=== PATIENT | male | born 1950 | race African-American/Black ===

== ENCOUNTER 2016-12-22 05:57 | Day surgery (SDC) | payer BC ==
[2016-12-21 12:08] VITALS: BMI 34.0
[2016-12-22] MEDS ORDERED: TETRACAINE 0.5% OPHTH SOLN 2 ML BOTTLE ONE (07:21)
[2016-12-22] MEDS ORDERED: BACITRACIN 3.5 GM OPTHALMIC OINT TUBE ONE (07:21)
[2016-12-22] MEDS ORDERED: POVIDONE-IODINE 5% OPHTHALMIC PREP 30 ML SOLUTION ONE (07:21)
[2016-12-22] MEDS ORDERED: MIDAZOLAM HCL 2 MG/2 ML SINGLE DOSE VIAL ONE (07:31)
[2016-12-22] MEDS ORDERED: PROPOFOL 20 ML ONE ×3 (07:31→08:57)
[2016-12-22] MEDS ORDERED: SUCCINYLCHOLINE CHLORIDE 200 MG/10 ML VIAL ONE (07:39)
[2016-12-22] MEDS ORDERED: ePHEDrine SULFATE 50 MG/1 ML AMPULE ONE (07:40)
[2016-12-22] MEDS ORDERED: ceFAZolin SODIUM 1 GM VIAL ONE ×2 (07:47→09:07)
[2016-12-22] MEDS ORDERED: ONDANSETRON 4 MG/2 ML VIAL ONE ×2 (08:21→09:17)
[2016-12-22] MEDS ORDERED: ACETAMINOPHEN 500 MG TABLET (FP) PO PRN (08:29)
[2016-12-22 08:58] VITALS: TEMP 97.6
[2016-12-22] MEDS ORDERED: LIDOCAINE HCL 2% 100 MG/5 ML DISP.SYRIN ONE (08:58)
[2016-12-22] MEDS ORDERED: DEXAMETHASONE SOD PHOSPHATE 4 MG/1 ML VIAL ONE (09:17)
[2016-12-22] MEDS ORDERED: PHENYLEPHRINE HCL 10 MG/1 ML SINGLE DOSE VIAL ONE (09:26)
[2016-12-22] MEDS ORDERED: ACETAMINOPHEN 500 MG TABLET (FP) ONE (09:33)
[2016-12-22] MEDS ORDERED: METOPROLOL TARTRATE 5 MG/5 ML VIAL ONE (09:34)
[2016-12-22 10:12] VITALS: BP 121/69; PULSE 49
[2016-12-22] MEDS ORDERED: LACTATED RINGERS SOLUTION 1,000 ML IV SCH (11:45)
[2016-12-22] MEDS ORDERED: ONDANSETRON 4 MG/2 ML VIAL IVPUSH PRN (11:49)
--- NOTE | 2016-12-23 12:57 | OP ---
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 POSTOPERATIVE DIAGNOSIS: Levator ptosis of the left upper lid. PROCEDURE: Levator advancement and reattachment, left upper lid. SURGEON: Juliana Candelaria MD ANESTHESIA: Local with sedation. COMPLICATONS: None. ESTIMATED BLOOD LOSS: Less than 1 mL. OPERATION REPORT: The patient was brought to the operating room and placed on the operating room table. Vital signs monitored by Anesthesia. Tetracaine was placed in both eyes. Lid crease was marked in the patients nasal crease approximately 9 mm above the lash line. Patient was given intravenous sedation after time-out, and then, 0.5 to 0.75 mL of 1% Xylocaine with 1:100,000 epinephrine was injected subcutaneously in the left lid crease and with gentle massage. The patient was prepped and draped in the usual sterile fashion exposing both eyes. Incision was carried through skin and subcutaneous tissue. This was carried through the orbicularis layer with [place] needle. The suborbicularis incision was carried superiorly exposing the septum, which was widely opened, exposing the preaponeurotic fat, which was retracted to expose a completely dehisced levator aponeurosis. The suborbicularis plane was dissected inferiorly exposing the anterior superior third of the tarsus. The levator aponeurosis was now reattached with a mattress 6-0 Vicryl and two interrupted 6-0 Vicryl sutures. The mattress was placed centrally nasal and temporal. This demonstrated no penetration of the suture. Each of these Vicryl sutures were tied. Patient was placed in the upright position. Lid was felt to be too high, and therefore the central wound was recessed to the very end of the advanced levator, and these were reassessed, and the upper lid contoured and height of the left upper lid was found to be excellent. All sutures were tied. Irrigation was used throughout the case, and at the end of the case, a small amount of anesthetic was reinjected into the skin, and then, the wound was closed with a running 6-0 plain suture, Bacitracin was placed on the sutures of the upper lid, and the patient was taken to the recovery room in stable condition. There were no complications. JULIANA CANDELARIA M.D. APOLLO/[id number]
== END 2016-12-22 10:21 | disposition home or self-care (01) ==
LOC: FASU 05:57
PROVIDERS: ATTEND Ophthalmology
PROC: 08SP0ZZ Reposition Left Upper Eyelid, Open Approach (ICD-10-PCS; principal; 2016-12-22 07:55)
DX: H02.422 Myogenic ptosis of left eyelid (principal)
CPT/HCPCS: 94760

== ENCOUNTER 2017-11-26 11:23 | Emergency (ER) | payer OTHER ==
[2017-11-26 11:34] VITALS: BMI 33.7
--- NOTE | 2017-11-26 12:31 | PDOC ---
History of Present Illness - General History Source: Patient Exam Limitations: No Limitations - History of Present Illness Initial Comments: 11/26/17 14:07 The patient is a 67 year old female with history significant for hypertension, hyperlipidemia, cardiomyopathy, known bradycardia who presents to the ED complaining of lightheadedness that began this morning. He states he felt lightheaded upon getting up. He sat down on his bed and lied down. No fall or head trauma. No true loss of consciousness. He also reports associated chest tightness and nausea. No fever, chills, or recent illness. No cough or recent illness. No nausea, vomiting, or diaphoresis. No urinary complaints. <Rosario Thompson - Last Filed: 11/26/17 16:13> <Kaur Garcia - Last Filed: 11/26/17 17:07> - General Chief Complaint: Lightheaded Stated Complaint: DIZZINESS Time Seen by Provider: 11/26/17 12:12 Past History <Rosario Thompson - Last Filed: 11/26/17 16:13> - Past Medical History Anemia: No Asthma: No Cancer: No Cardiac Disorders: Yes (MYOPATHY-DX 2011) CVA: No COPD: No CHF: No DVT: No Dementia: No Diabetes: No GI Disorders: Yes (GERD) Disorders: Yes (BPH) HTN: Yes Hypercholesterolemia: Yes Liver Disease: No Seizures: No Thyroid Disease: No - Surgical History Abdominal Surgery: No Appendectomy: No Cardiac Surgery: No Cholecystectomy: No Lung Surgery: No Neurologic Surgery: No Orthopedic Surgery: Yes (LUMBAR LAMINECTOMY/DISCECTOMY-2014) - Immunization History Immunization Up to Date: Yes - Suicide/Smoking/Psychosocial Hx Smoking Status: No Smoking History: Never smoked Have you smoked in the past 12 months: No Number of Cigarettes Smoked Daily: 0 Information on smoking cessation initiated: No Hx Alcohol Use: No Drug/Substance Use Hx: No Substance Use Type: None Hx Substance Use Treatment: No <Kaur Garcia - Last Filed: 11/26/17 17:07> - Past Medical History Allergies/Adverse Reactions: Allergies Allergy/AdvReac Type Severity Reaction Status Date / Time No Known Drug Allergies Allergy Verified 11/26/17 11:29 PEPPER Allergy Severe THROAT Uncoded 11/26/17 11:29 CLOSES Home Medications: Ambulatory Orders Amlodipine Besylate [Norvasc -] 10 mg PO DAILY 06/11/12 Finasteride [Proscar -] 5 mg PO HS 06/11/12 Irbesartan/Hydrochlorothiazide [Avalide 300-12.5 mg Tablet] 1 each PO DAILY 10/09 Sennosides [Senna -] 2 tab PO UTDICT 06/21/13 Triamcinolone Acet 55Mcg/Inhal [Nasacort Aq] 16.5 gm NS PRN 06/21/13 Ezetimibe [Zetia] 10 mg PO HS 11/13/13 Buprenorphine [Butrans] 10 mcg TD WEEKLY 02/22/15 Gabapentin 300 mg PO HS 02/22/15 Allopurinol [Zyloprim -] 100 mg PO DAILY 12/21/16 Aspirin Coated [Ecotrin -] 81 mg PO DAILY 12/21/16 Carvedilol 25 mg PO BID 12/21/16 Cholecalciferol (Vitamin D3) [Vitamin D3 -] 1,000 unit PO DAILY 12/21/16 Doxazosin Mesylate 8 mg PO BID 12/21/16 Review of Systems - Review of Systems Able to Perform ROS?: Yes Comments:: 11/26/17 14:14 GENERAL/CONSTITUTIONAL: No fever or chills. No weakness. HEAD, EYES, EARS, NOSE AND THROAT: No change in vision. No ear pain or discharge. No sore throat. CARDIOVASCULAR: +Lightheadedness, chest tightness. No shortness of breath or palpitations. RESPIRATORY: No cough, wheezing, or hemoptysis. GASTROINTESTINAL: +Nausea. No vomiting, diarrhea or constipation. GENITOURINARY: No dysuria, frequency, or change in urination. MUSCULOSKELETAL: No joint or muscle swelling or pain. No neck or back pain. SKIN: No rash NEUROLOGIC: No headache, vertigo, loss of consciousness, or change in strength/ sensation. ENDOCRINE: No increased thirst. No abnormal weight change. HEMATOLOGIC/LYMPHATIC: No anemia, easy bleeding, or history of blood clots. ALLERGIC/IMMUNOLOGIC: No hives or skin allergy. <Rosario Thompson - Last Filed: 11/26/17 16:13> *Physical Exam - Vital Signs Last Vital Signs Temp Pulse Resp BP Pulse Ox 97.6 F 53 L 17 140/78 98 11/26/17 11:30 11/26/17 12:53 11/26/17 12:53 11/26/17 12:53 11/26/17 12:53 <Rosario Thompson - Last Filed: 11/26/17 16:13> - Vital Signs Last Vital Signs Temp Pulse Resp BP Pulse Ox 97.6 F 69 16 148/93 98 11/26/17 11:30 11/26/17 11:30 11/26/17 11:30 11/26/17 11:30 11/26/17 11:30 - Physical Exam Comments: GENERAL: Awake, alert, and fully oriented, in no acute distress HEAD: No signs of trauma EYES: PERRLA, EOMI, sclera anicteric, conjunctiva clear ENT: Auricles normal inspection, hearing grossly normal, nares patent, oropharynx clear without exudates. Moist mucosa NECK: Normal ROM, supple, no lymphadenopathy, JVD, or masses LUNGS: Breath sounds equal, clear to auscultation bilaterally. No wheezes, and no crackles HEART: Bradycardic, normal S1 and S2, no murmurs, rubs or gallops ABDOMEN: Soft, nontender, normoactive bowel sounds. No guarding, no rebound. No masses EXTREMITIES: Normal range of motion, no edema. No clubbing or cyanosis. No cords, erythema, or tenderness NEUROLOGICAL: Cranial nerves II through XII grossly intact. Normal speech, normal gait SKIN: Warm, Dry, normal turgor, no rashes or lesions noted. <Kaur Garcia - Last Filed: 11/26/17 17:07> Heart Score/ECG Review - History History: Moderately suspicious - Electrocardiogram EKG: Non specific repolarization disturbance - Age Age: >/= 65 - Risk Factors Risk Factors Heart Score: Yes Hx Hypertension, Yes Positive family hx of cardiac disease, Yes Hx Obesity Based on the list above the patient has:: >/=3 risk factors or Hx atherosclerotic disease - Troponin Troponin: </= normal limit - Score Heart Score - Total: 6 - ECG Impressions Comment:: EKG read 13:49- Sinus terrie 50 bpm, +LBBB (similar to prior EKG) <Kaur Garcia - Last Filed: 11/26/17 17:07> ED Treatment Course - LABORATORY CBC & Chemistry Diagram: 11/26/17 12:30 11/26/17 12:30 - ADDITIONAL ORDERS Additional order review: Laboratory Results 11/26/17 12:30 Sodium 141 Potassium 4.5 Chloride 104 Carbon Dioxide 27 Anion Gap 10 BUN 24 H D Creatinine 2.1 H D Creat Clearance w eGFR 31.76 Random Glucose 102 Calcium 9.5 Total Bilirubin 0.4 D AST 45 H D ALT 59 D Alkaline Phosphatase 85 D Creatine Kinase 344 H Troponin I 0.07 H D Total Protein 7.5 Albumin 3.6 11/26/17 12:30 RBC 4.76 MCV 86.4 MCHC 34.4 RDW 14.0 MPV 8.2 Neutrophils % 56.7 Lymphocytes % 28.1 Monocytes % 12.2 H Eosinophils % 1.9 Basophils % 1.1 D <Rosario Thompson - Last Filed: 11/26/17 16:13> - LABORATORY CBC & Chemistry Diagram: 11/26/17 12:30 11/26/17 12:30 <Kaur Garcia - Last Filed: 11/26/17 17:07> Medical Decision Making - Medical Decision Making 11/26/17 16:13 Chest x-ray, read and interpreted by Dr. Zambrano. Impression: Cardiomegaly. Mild vascular congestive changes. No evidence of the pneumothorax. Left lower lung obscured by the cardiac silhouette, soft tissues of the chest. <Rosario Thompson - Last Filed: 11/26/17 16:13> - Medical Decision Making Case d/w Dr. Barker via phone approximately 2pm. Pt with prior negative stress test and MUGA. Does not suspect cardiac origin for symptoms. I will send repeat CE at 6hrs. If neg, DC home. will place on ED obs. <Kaur Garcia - Last Filed: 11/26/17 17:07> *DC/Admit/Observation/Transfer - Attestations Scribe Attestion: 11/26/17 14:46 Documentation prepared by Rosario Thompson, acting as medical typist for Kaur Garcia MD. <Rosario Thompson - Last Filed: 11/26/17 16:13> - Discharge Dispostion Admit: Yes <Kaur Garcia - Last Filed: 11/26/17 17:07> Diagnosis at time of Disposition: Near syncope - Discharge Dispostion Condition at time of disposition: Stable
[2017-11-26 13:08] LABS: BASO % 1.1 % (0-2.0); EOS % 1.9 % (0-4.5); HEMATOCRIT 41.1 % (35.4-49); HEMOGLOBIN 14.1 GM/dL (11.7-16.9); LYMPH % 28.1 % (8-40); MCH 29.7 pg (25.7-33.7); MCHC 34.4 g/dl (32.0-35.9); MEAN CELL VOLUME 86.4 fl (80-96); MEAN PLT VOLUME 8.2 fl (7.5-11.1); MONO % 12.2 % (3.8-10.2); NEUT % 56.7 % (42.8-82.8); PLATELET COUNT 177 K/MM3 (134-434); RBC 4.76 M/mm3 (4.00-5.60); WHITE BLOOD COUNT 6.5 K/mm3 (4.0-10.0)
[2017-11-26 13:49] LABS: ALBUMIN 3.6 g/dl (3.4-5.0); ANION GAP 10 (8-16); BILIRUBIN,TOTAL 0.4 mg/dL (0.2-1.0); BLOOD UREA NITROGEN 24 mg/dL (7-18); CALCIUM 9.5 mg/dL (8.5-10.1); CHLORIDE 104 mmol/L (98-107); CO2 27 mmol/L (21-32); CREATININE 2.1 mg/dL (0.7-1.3); GLUCOSE,RANDOM 102 mg/dL (74-106); SGPT/ALT 59 U/L (12-78); SODIUM 141 mmol/L (136-145); TOT PROT 7.5 g/dl (6.4-8.2)
[2017-11-26 13:51] LABS: ALK PHOS 85 U/L (45-117)
[2017-11-26 13:55] LABS: POTASSIUM 4.5 mmol/L (3.5-5.1); SGOT/AST 45 U/L (15-37)
[2017-11-26 19:21] VITALS: TEMP 98.5
--- NOTE | 2017-11-26 19:50 | PDOC ---
*Physical Exam - Vital Signs Last Vital Signs Temp Pulse Resp BP Pulse Ox 98.5 F 48 L 18 128/66 98 11/26/17 19:21 11/26/17 19:21 11/26/17 19:21 11/26/17 19:21 11/26/17 19:21 - Physical Exam Comments: 11/26/17 19:50 "GENERAL: Awake, alert, and fully oriented, in no acute distress HEAD: No signs of trauma EYES: PERRLA, EOMI, sclera anicteric, conjunctiva clear ENT: Auricles normal inspection, hearing grossly normal, nares patent, oropharynx clear without exudates. Moist mucosa NECK: Nontender, no stepoffs, Normal ROM, supple, no lymphadenopathy, JVD, or masses LUNGS: Breath sounds equal, clear to auscultation bilaterally. No wheezes, and no crackles HEART: Regular rate and rhythm, normal S1 and S2, no murmurs, rubs or gallops ABDOMEN: Soft, nontender, normoactive bowel sounds. No guarding, no rebound. No masses EXTREMITIES: Normal range of motion, no edema. No clubbing or cyanosis. No cords, erythema, or tenderness NEUROLOGICAL: Cranial nerves II through XII intact. 5/5 strength and sensation in all extremities, Normal speech, normal gait, normal cerebellar function SKIN: Warm, Dry, normal turgor, no rashes or lesions noted. " ED Treatment Course - LABORATORY CBC & Chemistry Diagram: 11/26/17 12:30 11/26/17 12:30 - ADDITIONAL ORDERS Additional order review: Laboratory Results 11/26/17 12:30 Sodium 141 Potassium 4.5 Chloride 104 Carbon Dioxide 27 Anion Gap 10 BUN 24 H D Creatinine 2.1 H D Creat Clearance w eGFR 31.76 Random Glucose 102 Calcium 9.5 Total Bilirubin 0.4 D AST 45 H D ALT 59 D Alkaline Phosphatase 85 D Creatine Kinase 344 H Creatine Kinase Index 1.2 CK-MB (CK-2) 4.191 H Troponin I 0.07 H D Total Protein 7.5 Albumin 3.6 11/26/17 12:30 RBC 4.76 MCV 86.4 MCHC 34.4 RDW 14.0 MPV 8.2 Neutrophils % 56.7 Lymphocytes % 28.1 Monocytes % 12.2 H Eosinophils % 1.9 Basophils % 1.1 D Medical Decision Making - Medical Decision Making 11/26/17 19:50 Sign out taken from Dr. Garcia at 5PM. 67M with hypertension, hyperlipidemia, cardiomyopathy, known bradycardia who presents to the ED complaining of lightheadedness. - Dr. Garcia spoke with Dr. Joshi, pt's facetor, who does not believe pt's symptoms are cardiac related - Initial trop 0.07, repeat downtrending Pt reassessed - states that he feels much better. Denies recurrence of lightheadedness. Denies CP/SOB. Pt is well appearing with stable vitals Clinically stable for DC. I discussed the physical exam findings, ancillary test results and final diagnoses with the patient. I answered all of the patient's questions. The patient was satisfied with the care received and felt comfortable with the discharge plan and treatment plan. The patient agrees to follow up with the primary care physician within 24-72 hours. *DC/Admit/Observation/Transfer Diagnosis at time of Disposition: Near syncope - Discharge Dispostion Disposition: HOME Condition at time of disposition: Stable - Referrals Referrals: Jase Damico MD [Primary Care Provider] - - Patient Instructions Printed Discharge Instructions: Dizziness, Nonvertigo Additional Instructions: Please follow up with your facetor tomorrow. If you experience any recurrent lightheadedness, chest pain, shortness of breath , or any other concerning symptoms, return to the ER immediately. - Post Discharge Activity - Attestations Physician Attestion: 11/26/17 19:52 I, Dr. Rony Fagan MD, attest that this document has been prepared under my direction and personally reviewed by me in its entirety. I further attest, that it accurately reflects all work, treatment, procedures and medical decision -making performed by me.
[2017-11-26 20:20] VITALS: BP 133/62; PULSE 51
--- NOTE | 2017-11-28 20:33 | EKG ---
Test Reason : Blood Pressure : / mmHG Vent. Rate : 050 BPM Atrial Rate : 050 BPM P-R Int : 204 ms QRS Dur : 154 ms QT Int : 538 ms P-R-T Axes : 051 022 044 degrees QTc Int : 490 ms SINUS BRADYCARDIA LEFT BUNDLE BRANCH BLOCK ABNORMAL ECG WHEN COMPARED WITH ECG OF 04-MAR-2015 10:53, T WAVE VARIATION Confirmed by GLO AWAN MD ([id number]) on 11/28/2017 8:33:00 PM Referred By: Confirmed By:GLO AWAN MD
== END 2017-11-26 20:22 | disposition home or self-care (01) ==
LOC: JER 11:23 → UNDOADMOB 14:16 → JERBED 14:16 → JER 20:22
DX: R55 Syncope and collapse (principal); I10 Essential (primary) hypertension; E78.00 Pure hypercholesterolemia, unspecified; N40.0 Benign prostatic hyperplasia without lower urinary tract symptoms; G72.9 Myopathy, unspecified; K21.9 Gastro-esophageal reflux disease without esophagitis
CPT/HCPCS: 36415; 71045-TC-FY; 80053; 82550; 82553; 84484; 85025; 93005; 93010; 99284-25

== ENCOUNTER 2019-05-14 15:41 | Emergency (ER) | payer OTHER ==
[2019-05-14 15:49] VITALS: BP 133/80; PULSE 61; TEMP 97.7; BMI 32.8
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
== END 2019-05-14 16:56 | disposition home or self-care (01) ==
LOC: JERFT 15:41
DX: S13.4XXA Sprain of ligaments of cervical spine, initial encounter (principal); V43.62XA Car passenger injured in collision with other type car in traffic accident, initial encounter; Y92.488 Other paved roadways as the place of occurrence of the external cause; Y93.89 Activity, other specified; Y99.8 Other external cause status; I10 Essential (primary) hypertension; E78.00 Pure hypercholesterolemia, unspecified; N40.0 Benign prostatic hyperplasia without lower urinary tract symptoms; K21.9 Gastro-esophageal reflux disease without esophagitis
CPT/HCPCS: 99282-25

== ENCOUNTER 2021-07-23 08:42 | Inpatient (IN) | payer OTHER ==
[2021-07-23] MEDS ORDERED: NITROGLYCERIN 2% OINTMENT - 1GM PACKET TD ONE ×2 (09:15→09:22)
[2021-07-23 09:31] LABS: BASO % 2.2 % (0-2.0); EOS % 2.3 % (0-4.5); HEMATOCRIT 37.9 % (35.4-49); HEMOGLOBIN 13.2 GM/dL (11.7-16.9); LYMPH % 15.6 % (8-40); MCH 29.8 pg (25.7-33.7); MCHC 34.8 g/dl (32.0-35.9); MEAN CELL VOLUME 85.6 fl (80-96); MEAN PLT VOLUME 8.2 fl (7.5-11.1); MONO % 12.2 % (3.8-10.2); NEUT % 67.7 % (42.8-82.8); PLATELET COUNT 184 10^3/uL (134-434); RBC 4.43 M/mm3 (4.00-5.60); RDW 14.4 % (11.9-15.9); WHITE BLOOD COUNT 4.7 K/mm3 (4.0-10.0)
[2021-07-23 09:38] LABS: INR 1.32 (0.83-1.09); PROTHROMBIN TIME (PATIENT) 15.5 SEC (9.7-13.0)
[2021-07-23 09:52] LABS: CALCIUM 9.6 mg/dL (8.5-10.1)
[2021-07-23 09:53] LABS: ALBUMIN 3.4 g/dl (3.4-5.0); BLOOD UREA NITROGEN 24.5 mg/dL (7-18); MAGNESIUM 2.2 mg/dL (1.8-2.4)
[2021-07-23 09:58] LABS: BILIRUBIN,TOTAL 0.6 mg/dL (0.2-1); TOT PROT 6.8 g/dl (6.4-8.2)
[2021-07-23 10:02] LABS: N-TERMINAL BNP 6593.1 pg/ml (5-125)
[2021-07-23] MEDS ORDERED: METOPROLOL TARTRATE 5 MG/5 ML VIAL ONE ×2 (10:06→11:13)
[2021-07-23] MEDS ORDERED: METOPROLOL TARTRATE 5 MG/5 ML VIAL IVPUSH ONE ×2 (11:12→11:31)
[2021-07-23] MEDS ORDERED: ASPIRIN 325 MG ENTERIC COATED TABLET (FP) PO ONE (11:19)
[2021-07-23] MEDS ORDERED: ASPIRIN 81 MG CHEWABLE TABLETS ONE (11:31)
[2021-07-23] MEDS ORDERED: AMIODARONE HCL INJECTION 150 MG in DEXTROSE 5%-WATER - 100 ML IVPB ONE (12:20)
[2021-07-23] MEDS ORDERED: AMIODARONE HCL INJECTION 450 MG in DEXTROSE 5%-WATER - 241 ML IVPB ONE (12:23)
[2021-07-23] MEDS ORDERED: AMIODARONE HCL 150 MG/3 ML VIAL ONE ×2 (12:35→12:37)
[2021-07-23] MEDS ORDERED: AMIODARONE IN DEXTROSE,ISO-OSM 360 MG/200 ML BAG IVPB ONE ×2 (13:00→14:13)
[2021-07-23] MEDS ORDERED: FUROSEMIDE 40 MG TABLET (FP) PO ONE (17:03)
[2021-07-23 17:34] VITALS: BMI 33.2
[2021-07-23] MEDS ORDERED: AMIODARONE IN DEXTROSE,ISO-OSM 360 MG/200 ML BAG IVPB SCH (19:00)
[2021-07-23] MEDS: CARVEDILOL 25 MG TABLET (FP) PO SCH (21:04)
[2021-07-23] MEDS: APIXABAN 5 MG TABLET PO SCH (21:04)
[2021-07-23] MEDS: EZETIMIBE 10 MG TABLET (FP) PO SCH (21:04)
[2021-07-23] MEDS: FINASTERIDE 5 MG TABLET (FP) PO SCH (21:05)
[2021-07-23] MEDS ORDERED: ROSUVASTATIN CA 5 MG TABLET (FP) PO SCH (22:00)
[2021-07-23] MEDS ORDERED: SACUBITRIL/VALSARTAN 49 MG-51 MG TABLET PO SCH (22:00)
[2021-07-23] MEDS: GABAPENTIN 300 MG CAPSULE PO SCH (22:35)
[2021-07-24] MEDS ORDERED: ACETAMINOPHEN 325 MG TABLET (FP) PO ONE (01:32)
[2021-07-24 07:44] LABS: BASO % 0.9 % (0-2.0); EOS % 1.8 % (0-4.5); HEMATOCRIT 35.8 % (35.4-49); HEMOGLOBIN 12.2 GM/dL (11.7-16.9); LYMPH % 16.9 % (8-40); MCH 29.7 pg (25.7-33.7); MCHC 34.2 g/dl (32.0-35.9); MEAN CELL VOLUME 86.9 fl (80-96); MEAN PLT VOLUME 7.9 fl (7.5-11.1); MONO % 11.5 % (3.8-10.2); NEUT % 68.9 % (42.8-82.8); PLATELET COUNT 160 10^3/uL (134-434); RBC 4.12 M/mm3 (4.00-5.60); RDW 14.1 % (11.9-15.9); WHITE BLOOD COUNT 5.1 K/mm3 (4.0-10.0)
[2021-07-24 08:20] LABS: ALBUMIN 3.1 g/dl (3.4-5.0); BLOOD UREA NITROGEN 25.2 mg/dL (7-18); CALCIUM 9.2 mg/dL (8.5-10.1); MAGNESIUM 2.1 mg/dL (1.8-2.4)
[2021-07-24 08:23] LABS: PHOSPHOROUS 3.7 mg/dL (2.5-4.9)
[2021-07-24 08:25] LABS: BILIRUBIN,TOTAL 1.2 mg/dL (0.2-1); TOT PROT 6.5 g/dl (6.4-8.2)
[2021-07-24] MEDS ORDERED: FUROSEMIDE 40 MG/4 ML INJECTABLE VIAL IVPUSH ONE (09:30)
[2021-07-24] MEDS ORDERED: PT OWN MED DRAWER 7, Y5N ONE ×3 (09:36→14:42)
[2021-07-24] MEDS: TAMSULOSIN HCL 0.4 MG CAP PO SCH (09:46)
[2021-07-24] MEDS ORDERED: amLODIPine BESYLATE 10 MG TABLET (FP) PO SCH (10:00)
[2021-07-24] MEDS ORDERED: HYDROCHLOROTHIAZIDE 12.5 MG CAPSULE (FP) PO SCH (10:00)
[2021-07-24] MEDS ORDERED: ASPIRIN COATED 81 MG TABLET.EC PO SCH (10:00)
[2021-07-24] MEDS: ALLOPURINOL 100 MG TABLET (FP) PO SCH (10:13)
[2021-07-24] MEDS: APIXABAN 5 MG TABLET PO SCH ×2 (10:14→21:12)
[2021-07-24] MEDS: AMIODARONE HCL 200 MG TABLET PO SCH ×2 (10:14→21:12)
[2021-07-24] MEDS: CARVEDILOL 25 MG TABLET (FP) PO SCH ×2 (10:15→21:12)
[2021-07-24] MEDS: amLODIPine BESYLATE 5 MG TABLET (FP) PO SCH (10:17)
[2021-07-24] MEDS: SACUBITRIL/VALSARTAN 97 MG-103 MG TABLET PO SCH ×2 (11:24→21:12)
[2021-07-24] MEDS ORDERED: POTASSIUM CHLORIDE TABS 20 MEQ TABLET.ER (FP) PO ONE (13:02)
[2021-07-24] MEDS: EZETIMIBE 10 MG TABLET (FP) PO SCH (21:12)
[2021-07-24] MEDS: FINASTERIDE 5 MG TABLET (FP) PO SCH (21:12)
[2021-07-24] MEDS: GABAPENTIN 300 MG CAPSULE PO SCH (21:12)
[2021-07-25] MEDS: AMIODARONE HCL 200 MG TABLET PO SCH ×2 (05:21→10:00)
[2021-07-25] MEDS: FINASTERIDE 5 MG TABLET (FP) PO SCH (05:21)
[2021-07-25 07:27] LABS: BASO % 1.1 % (0-2.0); EOS % 3.2 % (0-4.5); HEMATOCRIT 37.4 % (35.4-49); LYMPH % 17.7 % (8-40); MCH 29.5 pg (25.7-33.7); MCHC 34.6 g/dl (32.0-35.9); MEAN CELL VOLUME 85.2 fl (80-96); MEAN PLT VOLUME 8.3 fl (7.5-11.1); MONO % 10.9 % (3.8-10.2); NEUT % 67.1 % (42.8-82.8); PLATELET COUNT 179 10^3/uL (134-434); RBC 4.39 M/mm3 (4.00-5.60); RDW 14.3 % (11.9-15.9)
[2021-07-25 07:58] LABS: ALBUMIN 3.3 g/dl (3.4-5.0); BLOOD UREA NITROGEN 25.4 mg/dL (7-18); CALCIUM 9.3 mg/dL (8.5-10.1)
[2021-07-25 08:01] LABS: PHOSPHOROUS 3.6 mg/dL (2.5-4.9)
[2021-07-25 08:03] LABS: BILIRUBIN,TOTAL 0.5 mg/dL (0.2-1); TOT PROT 6.7 g/dl (6.4-8.2)
[2021-07-25] MEDS: TAMSULOSIN HCL 0.4 MG CAP PO SCH (10:00)
[2021-07-25] MEDS: SACUBITRIL/VALSARTAN 97 MG-103 MG TABLET PO SCH (10:01)
[2021-07-25] MEDS: APIXABAN 5 MG TABLET PO SCH (10:01)
[2021-07-25] MEDS: CARVEDILOL 25 MG TABLET (FP) PO SCH (10:01)
[2021-07-25] MEDS: amLODIPine BESYLATE 5 MG TABLET (FP) PO SCH (10:02)
[2021-07-25] MEDS: ALLOPURINOL 100 MG TABLET (FP) PO SCH (10:03)
[2021-07-25] MEDS ORDERED: FUROSEMIDE 40 MG/4 ML INJECTABLE VIAL IVPUSH ONE (14:36)
[2021-07-25 17:12] VITALS: BP 138/88; PULSE 65; TEMP 98.2
[2021-07-26] MEDS ORDERED: FUROSEMIDE 40 MG TABLET (FP) PO SCH (10:00)
== END 2021-07-25 18:38 | disposition home or self-care (01) | DRG 308 ==
LOC: JER 08:42 → JERBED 12:30 → J4W 16:36
PROVIDERS: ADMIT Internal Medicine; ATTEND Internal Medicine
DX: I48.0 Paroxysmal atrial fibrillation (principal); I50.23 Acute on chronic systolic (congestive) heart failure; I13.0 Hypertensive heart and chronic kidney disease with heart failure and stage 1 through stage 4 chronic kidney disease, or unspecified chronic kidney disease; I24.8 Other forms of acute ischemic heart disease; I47.2 Ventricular tachycardia; E78.5 Hyperlipidemia, unspecified; I42.9 Cardiomyopathy, unspecified; I42.0 Dilated cardiomyopathy; G47.30 Sleep apnea, unspecified; I10 Essential (primary) hypertension; Z95.0 Presence of cardiac pacemaker; Z85.46 Personal history of malignant neoplasm of prostate; I48.91 Unspecified atrial fibrillation; N18.32 Chronic kidney disease, stage 3b; N28.89 Other specified disorders of kidney and ureter; Z79.01 Long term (current) use of anticoagulants
CPT/HCPCS: 36415; 71045-TC-FY; 80053; 82550; 82553; 83735; 83880; 84100; 84443; 84484; 85025; 85610; 93005; 93010; 97116-GP; 97162-GP; 99285-25; C9803; U0003; U0005

== ENCOUNTER 2021-08-16 15:39 | Observation (INO) | payer OTHER ==
[2021-08-16 16:08] VITALS: BMI 23.7
[2021-08-16 17:40] LABS: BASO % 1.1 % (0-2.0); EOS % 3.7 % (0-4.5); HEMATOCRIT 34.9 % (35.4-49); HEMOGLOBIN 11.6 GM/dL (11.7-16.9); LYMPH % 21.5 % (8-40); MCHC 33.3 g/dl (32.0-35.9); MEAN CELL VOLUME 86.9 fl (80-96); MEAN PLT VOLUME 7.9 fl (7.5-11.1); MONO % 12.2 % (3.8-10.2); NEUT % 61.5 % (42.8-82.8); PLATELET COUNT 169 10^3/uL (134-434); RBC 4.02 M/mm3 (4.00-5.60); RDW 14.3 % (11.9-15.9); WHITE BLOOD COUNT 4.7 K/mm3 (4.0-10.0)
[2021-08-16 17:52] LABS: INR 1.36 (0.83-1.09); PROTHROMBIN TIME (PATIENT) 15.3 SEC (9.7-13.0)
[2021-08-16 17:55] LABS: ACTIVATED PTT 41.9 SECONDS (25.2-36.5)
[2021-08-16 18:07] LABS: ALBUMIN 3.1 g/dl (3.4-5.0); CALCIUM 8.7 mg/dL (8.5-10.1)
[2021-08-16 18:08] LABS: BLOOD UREA NITROGEN 18.5 mg/dL (7-18)
[2021-08-16 18:10] LABS: CREATININE 2.2 mg/dL (0.55-1.3)
[2021-08-16 18:12] LABS: BILIRUBIN,TOTAL 0.3 mg/dL (0.2-1); TOT PROT 6.5 g/dl (6.4-8.2)
[2021-08-16 18:15] LABS: N-TERMINAL BNP 3256.6 pg/ml (5-125)
[2021-08-16] MEDS ORDERED: FUROSEMIDE 40 MG/4 ML INJECTABLE VIAL IVPUSH ONE (18:22)
[2021-08-16] MEDS ORDERED: FUROSEMIDE 40 MG/4 ML INJECTABLE VIAL ONE (18:59)
[2021-08-16] MEDS ORDERED: APIXABAN 5 MG TABLET ONE (21:48)
[2021-08-16] MEDS ORDERED: GABAPENTIN 100 MG CAPSULE ONE (21:48)
[2021-08-16] MEDS: APIXABAN 5 MG TABLET PO SCH (22:03)
[2021-08-16] MEDS: SACUBITRIL/VALSARTAN 97 MG-103 MG TABLET PO SCH (22:03)
[2021-08-16] MEDS: CARVEDILOL 25 MG TABLET (FP) PO SCH (22:03)
[2021-08-16] MEDS: ROSUVASTATIN CA 5 MG TABLET (FP) PO SCH (22:03)
[2021-08-16] MEDS: GABAPENTIN 100 MG CAPSULE PO SCH (22:57)
[2021-08-17] MEDS ORDERED: FUROSEMIDE 40 MG/4 ML INJECTABLE VIAL ONE ×2 (06:04→15:35)
[2021-08-17] MEDS: FUROSEMIDE 40 MG/4 ML INJECTABLE VIAL IVPB SCH ×2 (06:15→15:43)
[2021-08-17 08:24] LABS: INR 1.34 (0.83-1.09); PROTHROMBIN TIME (PATIENT) 15.7 SEC (9.7-13.0)
[2021-08-17 08:26] LABS: ACTIVATED PTT 39.5 SECONDS (25.2-36.5)
[2021-08-17] MEDS ORDERED: APIXABAN 5 MG TABLET ONE ×2 (08:27→21:34)
[2021-08-17] MEDS ORDERED: amLODIPine BESYLATE 5 MG TABLET (FP) ONE (08:27)
[2021-08-17] MEDS ORDERED: GABAPENTIN 100 MG CAPSULE ONE ×2 (08:27→21:35)
[2021-08-17] MEDS ORDERED: TAMSULOSIN HCL 0.4 MG CAP ONE (08:27)
[2021-08-17 08:28] LABS: HEMATOCRIT 35.8 % (35.4-49); HEMOGLOBIN 11.9 GM/dL (11.7-16.9); MCH 29.1 pg (25.7-33.7); MCHC 33.3 g/dl (32.0-35.9); MEAN CELL VOLUME 87.5 fl (80-96); MEAN PLT VOLUME 9.1 fl (7.5-11.1); PLATELET COUNT 178 10^3/uL (134-434); RBC 4.09 M/mm3 (4.00-5.60); RDW 14.2 % (11.9-15.9); WHITE BLOOD COUNT 4.2 K/mm3 (4.0-10.0)
[2021-08-17 08:42] LABS: ALBUMIN 3.3 g/dl (3.4-5.0); BLOOD UREA NITROGEN 18.9 mg/dL (7-18)
[2021-08-17 08:43] LABS: MAGNESIUM 2.1 mg/dL (1.8-2.4)
[2021-08-17 08:44] LABS: CALCIUM 9.2 mg/dL (8.5-10.1)
[2021-08-17 08:45] LABS: CREATININE 2.2 mg/dL (0.55-1.3); PHOSPHOROUS 3.8 mg/dL (2.5-4.9)
[2021-08-17 08:46] LABS: BILIRUBIN,TOTAL 0.4 mg/dL (0.2-1); TOT PROT 6.5 g/dl (6.4-8.2)
[2021-08-17] MEDS: TAMSULOSIN HCL 0.4 MG CAP PO SCH (08:46)
[2021-08-17] MEDS: APIXABAN 5 MG TABLET PO SCH ×2 (09:30→22:20)
[2021-08-17] MEDS: GABAPENTIN 100 MG CAPSULE PO SCH ×2 (09:37→23:37)
[2021-08-17] MEDS: EZETIMIBE 10 MG TABLET (FP) PO SCH (09:38)
[2021-08-17] MEDS: amLODIPine BESYLATE 5 MG TABLET (FP) PO SCH (09:38)
[2021-08-17] MEDS: FINASTERIDE 5 MG TABLET (FP) PO SCH (09:38)
[2021-08-17] MEDS: ALLOPURINOL 100 MG TABLET (FP) PO SCH (09:38)
[2021-08-17] MEDS ORDERED: AMIODARONE HCL 200 MG TABLET PO SCH (10:00)
[2021-08-17] MEDS: SACUBITRIL/VALSARTAN 97 MG-103 MG TABLET PO SCH ×2 (10:37→22:21)
[2021-08-17] MEDS: CARVEDILOL 25 MG TABLET (FP) PO SCH ×2 (11:00→22:20)
[2021-08-17] MEDS ORDERED: ACETAMINOPHEN 325 MG TABLET (FP) PO ONE (15:45)
[2021-08-17] MEDS ORDERED: ACETAMINOPHEN 325 MG TABLET (FP) ONE (19:13)
[2021-08-17] MEDS ORDERED: CARVEDILOL 12.5 MG TABLET (FP) ONE (21:34)
[2021-08-17] MEDS: ROSUVASTATIN CA 5 MG TABLET (FP) PO SCH (22:20)
[2021-08-18] MEDS ORDERED: FUROSEMIDE 40 MG/4 ML INJECTABLE VIAL ONE (05:39)
[2021-08-18] MEDS: FUROSEMIDE 40 MG/4 ML INJECTABLE VIAL IVPB SCH (06:07)
[2021-08-18 08:20] LABS: BASO % 0.4 % (0-2.0); HEMATOCRIT 37.1 % (35.4-49); HEMOGLOBIN 12.6 GM/dL (11.7-16.9); LYMPH % 20.6 % (8-40); MCH 29.5 pg (25.7-33.7); MEAN CELL VOLUME 86.5 fl (80-96); MEAN PLT VOLUME 8.6 fl (7.5-11.1); MONO % 12.1 % (3.8-10.2); NEUT % 62.9 % (42.8-82.8); PLATELET COUNT 172 10^3/uL (134-434); RBC 4.28 M/mm3 (4.00-5.60); RDW 14.3 % (11.9-15.9); WHITE BLOOD COUNT 4.6 K/mm3 (4.0-10.0)
[2021-08-18] MEDS: TAMSULOSIN HCL 0.4 MG CAP PO SCH (08:30)
[2021-08-18 08:35] LABS: CALCIUM 9.1 mg/dL (8.5-10.1)
[2021-08-18 08:36] LABS: BLOOD UREA NITROGEN 22.9 mg/dL (7-18)
[2021-08-18 08:38] LABS: CREATININE 2.3 mg/dL (0.55-1.3)
[2021-08-18] MEDS ORDERED: APIXABAN 5 MG TABLET ONE (10:35)
[2021-08-18] MEDS ORDERED: FUROSEMIDE 40 MG TABLET (FP) ONE (10:35)
[2021-08-18] MEDS ORDERED: amLODIPine BESYLATE 5 MG TABLET (FP) ONE (10:35)
[2021-08-18] MEDS ORDERED: GABAPENTIN 100 MG CAPSULE ONE (10:36)
[2021-08-18] MEDS ORDERED: TAMSULOSIN HCL 0.4 MG CAP ONE (10:36)
[2021-08-18] MEDS ORDERED: CARVEDILOL 12.5 MG TABLET (FP) ONE (10:36)
[2021-08-18] MEDS: GABAPENTIN 100 MG CAPSULE PO SCH (11:00)
[2021-08-18] MEDS: APIXABAN 5 MG TABLET PO SCH (11:00)
[2021-08-18] MEDS: amLODIPine BESYLATE 5 MG TABLET (FP) PO SCH (11:00)
[2021-08-18] MEDS: SACUBITRIL/VALSARTAN 97 MG-103 MG TABLET PO SCH (11:00)
[2021-08-18] MEDS: CARVEDILOL 25 MG TABLET (FP) PO SCH (11:00)
[2021-08-18] MEDS: ALLOPURINOL 100 MG TABLET (FP) PO SCH (11:01)
[2021-08-18] MEDS: FINASTERIDE 5 MG TABLET (FP) PO SCH (11:01)
[2021-08-18] MEDS: EZETIMIBE 10 MG TABLET (FP) PO SCH (11:01)
[2021-08-18 11:32] LABS: N-TERMINAL BNP 3303.6 pg/ml (5-125)
[2021-08-18 13:08] VITALS: BP 132/88; PULSE 77; TEMP 97.8
[2021-08-19] MEDS ORDERED: FUROSEMIDE 40 MG TABLET (FP) PO SCH (10:00)
== END 2021-08-18 13:32 | disposition home or self-care (01) ==
LOC: JER 15:39 → INTOOBSV 18:22 → UNDOADMOB 18:22 → JERBED 18:22
PROVIDERS: ATTEND Internal Medicine
PROC: 3E033GC Introduction of Other Therapeutic Substance into Peripheral Vein, Percutaneous Approach (ICD-10-PCS; principal; 2021-08-16)
DX: I13.0 Hypertensive heart and chronic kidney disease with heart failure and stage 1 through stage 4 chronic kidney disease, or unspecified chronic kidney disease (principal); I50.23 Acute on chronic systolic (congestive) heart failure; E78.5 Hyperlipidemia, unspecified; N40.0 Benign prostatic hyperplasia without lower urinary tract symptoms; M10.9 Gout, unspecified; Z29.9 Encounter for prophylactic measures, unspecified; G47.33 Obstructive sleep apnea (adult) (pediatric); Z91.018 Allergy to other foods; Z79.01 Long term (current) use of anticoagulants; N18.32 Chronic kidney disease, stage 3b; R00.1 Bradycardia, unspecified; I48.0 Paroxysmal atrial fibrillation; Z91.19 Patient's noncompliance with other medical treatment and regimen
CPT/HCPCS: 36415; 71046-TC-FY; 80048; 80053; 82550; 82553; 83735; 83880; 84100; 84484; 85025; 85027; 85610; 85730; 93005; 93010; 99285-25; C9803; G0378; U0003; U0005